=== PATIENT | male | born 1990 | race Caucasian/White ===

== ENCOUNTER 2019-09-09 01:18 | Emergency (ER) | payer OTHER, SELFPAY ==
[2013-06-30 07:42] VITALS: BMI 21.9
[2019-09-09 01:20] VITALS: BP 159/82; PULSE 66; RESP 18; TEMP 36.8; O2SAT 100; BMI 26.1
--- NOTE | 2019-09-09 01:30 | ED.VIS.GEN ---
History of Present Illness Chief Complaint: Syncope Detail of Chief Complaint: Syncope with urination Informant: Patient, Significant Other Onset: Today, Yesterday Context: Sudden Onset Timing: Intermittent Quality: Syncope and collapse with urination Location: Restroom Current Severity: - - Resolved Maximum Severity: Severe Worsened by: Urination Relieved by: Nothing specific Associated Symptoms: Pale, diaphoresis, collapse, eyes rolled back Narrative: She is a 29-year-old male with no sniffing past medical history who had a left inguinal hernia repair by Dr. Corina Stearns on September 07. He had to sit episodes yesterday while he attempted to urinate. Prior to arrival he had a sickle cell when he was trying to urinate. He became pale, diaphoretic and states vision began to tunnel and went black. He collapsed. Mother states his eyes rolled back. There was no incontinence of urine or stool. Denies headache. Denies biting his tongue. He denies blood in his urine. He denies black or maroon stool. He denies chest pain, shortness of breath or difficulty breathing. Prior similar symptoms: No Recent Illness/Hospitalization: Yes - Left inguinal hernia repair - Past Medical History (1) No significant past medical history Status: Acute Past Medical History - Allergies and Home Meds Allergies/Adverse Reactions: Allergies No Known Allergies Allergy (Verified 09/09/19 01:19) Primary Care Physician: Corina Stearns MD [STAFF PHYSICIAN] - Keep Anastacio appointment NOT,DEFINED [NON-STAFF] - Prior records reviewed: Yes Past Medical History: None Surgical History: - - Left inguinal hernia Lives: Spouse/ Significant Other Smoking Status: Never smoker Alcohol: None Drugs: None Review of Systems General: Denies: Chills, Fever, Malaise Eyes: Reports: Blurred Vision - bilaterally. Denies: Diplopia ENT: Denies: Bilateral ear pain, Rhinorrhea Cardiovascular: Denies: Chest pain, Palpitations, Heart racing Respiratory: Denies: Dyspnea, Cough, Dyspnea on exertion Gastrointestinal: Reports: Abdominal pain, Nausea. Denies: Vomiting, Diarrhea, Constipation, Melena, Hematochezia Genitourinary: Denies: Dysuria, Hematuria, Frequency Musculoskeletal: Denies: Myalgias, Arthralgias, Neck pain, Back pain, Swelling, Extremity Pain, -, - Skin: Denies: Rash, Wounds Neurological: Denies: Headache, Weakness, Numbness Allergy: Denies: Uticaria, Swelling of the mouth Physical Exam Vital Signs/Narrative: Vital Signs Temp Pulse Resp BP Pulse Ox 09/09/19 01:20 98.2 F 66 18 159/82 H 100 Inital Vital Signs reviewed: Yes General: Well nourished, Well developed, No Acute Distress Head: Normocephalic, Atraumatic Eyes: Perrl, EOMI. Negative for: Pale conjunctiva, Scleral icterus ENT: Moist mucous membranes, No rhinorrhea Neck: Supple, Nontender, No lymphadenopathy, No JVD Cardiovascular: Regular rate, Regular rhythm, No murmurs, Normal S1, Normal S2 Respiratory: No distress, CTA bilaterally, Chest nontender Abdomen: Soft, Nontender, Nondistended, Normal bowel sounds : - - Patient has dressing over left inguinal area. There is no erythema, warmth or fluctuance. There is no inguinal of adenopathy. Extremities: Nontender, No edema, - - There is no asymmetry, swelling, discoloration, leg vein distention, palpable cords or tenderness along the distribution of the deep venous system. Skin: No rash, No Trauma, Pallor. Negative for: Cyanosis, Diaphoresis, Jaundice Neurological: Alert, Oriented x3, Cranial nerves II-XII grossly intact, Normal Strength, Normal Sensation Psychological: Normal affect, Normal Mood Diagnostic/Tx/Re-eval - Rhythm Strip Rhythm Strip: Sinus Rhythm Rate: 62 Ectopy: None - Medical Decision Making Patient's history is consistent with micturition syncope. His cardia vascular and complete exam is normal. He was placed on a monitor to assess for dysrhythmia. He received the remainder of liter that was started by paramedics. ED Disposition - Plan for ED Patient: Disposition: Home or Assisted Living Diagnosis: Micturition syncope Instructions: SYNCOPE, Vasovagal Referrals: NOT,DEFINED [NON-STAFF] - Corina Stearns MD [STAFF PHYSICIAN] - Keep Anastcaio appointment
[2019-09-09] MEDS: 0.9% Normal Saline 1,000 ML 1000 ML IV (01:33)
[2019-09-09 03:21] VITALS: BP 123/64; PULSE 75; RESP 14; O2SAT 99
== END 2019-09-09 03:23 | disposition home or self-care (01) ==
PROVIDERS: Emergency Provider Emergency Medicine
DX: R55 Syncope and collapse (principal)
CPT/HCPCS: 96360; 96361; 99285; J7030

== ENCOUNTER 2023-06-16 14:12 | Emergency (ER) | payer OTHER, SELFPAY ==
[2023-06-16 14:13] VITALS: BP 132/86; PULSE 94; RESP 18; TEMP 36.8; O2SAT 98; BMI 24.9
--- NOTE | 2023-06-16 14:17 | EKG12_ITS ---
Test Reason : CP Blood Pressure : / mmHG Vent. Rate : 094 BPM Atrial Rate : 094 BPM P-R Int : 110 ms QRS Dur : 078 ms QT Int : 330 ms P-R-T Axes : 047 084 081 degrees QTc Int : 412 ms Sinus rhythm with sinus arrhythmia with short IN Otherwise normal ECG Confirmed by ANT SERVIN, BAILEY ([id number]), editor managing newspaper GAVINO SHERWOOD ([id number]) on 06/25/2023 10:06:00 AM Referred By: JOSÉ/YAYA/KRISTA Confirmed By:BAILEY CAIN MD
--- NOTE | 2023-06-16 14:32 | RAD_ITS ---
STUDY: X-RAY CHEST REASON FOR EXAM: Male, 33 years old. Chest pain TECHNIQUE: Single AP portable view of the chest. COMPARISON: Comparison is made with prior study June 30, 2013. FINDINGS: The lungs are clear and expanded. Scattered calcified granulomas. There is no demonstrated pleural abnormality. Normal size heart. Normal mediastinum and magdaleno. Normal visualized pulmonary arteries. Normal visualized aortic arch and descending thoracic aorta. Normal visualized thoracic spine. Normal visualized ribs, clavicles, and shoulders. There is no demonstrated abnormality of the visualized soft tissue structures of the upper abdomen. RAD/Chest 1 View (Portable) IMPRESSION: Normal x-ray examination of the chest. Electronically Signed: Gonzalo Wang MD at 15:01 EST ,
--- NOTE | 2023-06-16 14:39 | ED.VIS.CHEST ---
HPI History of Present Illness Chief Complaint: Chest Pain Narrative Narrative: 33-year-old male who denies significant past medical history presents with his because of midsternal, nonradiating chest pain that is intermittent that he has had since yesterday morning. There is no predictability to his sometimes sharp and stabbing, otherwise pressure sensation in his chest. He denies any nausea or vomiting, no shortness of breath, no diaphoresis. No DVT or PE risk factors. No risk factors for coronary artery disease. He denies any leg swelling. He presents because of the persistent pain and pressure that he is having midsternally. His does relate history that he eats a lot of hot, spicy foods and does lay down afterwards. [facility] Medical History (Updated 06/16/23 @ 17:59 by Yomi Presley MD) Syncopal episodes Medical History no medical history no medical history Home Medications No Known/Unobtainable [No Known Home Medications] 06/30/13 [History Last Taken Unknown] Allergy/AdvReac Type Severity Reaction Status Date / Time No Known Allergies Allergy Verified 06/16/23 14:13 Social History Smoking Status: Never smoker ROS ROS ED ROS Narrative Constitutional: No fever, no chills. HEENT: No sore throat. No neck pain. No loss of vision. No rhinorrhea. Cardiovascular: Midsternal chest pain with occasional pressure. No palpitations. No pedal edema. Respiratory: No cough, no shortness of breath. Abdominal: No abdominal pain. No nausea. No vomiting. Genitourinary: No dysuria. No hematuria. Musculoskeletal: No myalgias. No arthralgias. Neurologic: No headaches. No dizziness. No lightheadedness. Skin: No rash. No change in color. Psychiatric: No depression. No anxiety. EXAM Physical Exam Narrative Exam Narrative: Afebrile. Vital signs noted. HEENT: Normocephalic. Atraumatic. PERRL, EOMI. Neck soft and supple. No point tenderness or step off. Cardiovascular: Regular rate and rhythm. No murmurs, rubs, or gallops appreciated. Respiratory: No tachypnea. Lungs clear to auscultation bilaterally. Gastrointestinal: Abdomen soft, nontender, with normoactive bowel sounds. No rebound or guarding. Neurological: Awake. Alert. Nonfocal, nonlateralizing. Skin: No rash. Normal color. No pallor. Musculoskeletal: No pedal edema. Full range of motion extremities. Const Vital Signs: 06/16/23 14:13 06/16/23 14:59 06/16/23 15:00 Temperature 98.3 F Temperature Source Temporal Pulse Rate 94 90 Respiratory Rate 18 20 H Respiratory Effort Normal Non-Labored Blood Pressure 132/86 H 120/61 Blood Pressure Mean 101 80 Pulse Ox 98 98 Oxygen Delivery Method Room Air Room Air 06/16/23 17:23 06/16/23 18:07 06/16/23 18:08 Temperature Temperature Source Pulse Rate 74 82 81 Respiratory Rate 13 13 18 Respiratory Effort Blood Pressure 128/73 H 117/61 117/61 Blood Pressure Mean 91 79 79 Pulse Ox 98 97 96 Oxygen Delivery Method Room Air Room Air Heart Score History: Slightly/Non-Suspicious ECG: Normal Age: </= 45 years Risk Factors: No Risk Factors Score: 0 MDM MDM MDM Narrative Medical decision making narrative: In the differential diagnosis is coronary artery disease, pulmonary embolism, pneumothorax, and GERD. I have lower suspicion for pancreatitis as the history and physical does not support this. Additionally, he has a low Wells score for pulmonary embolism and his pulse ox is 98% on room air. Also in the differential diagnosis is hiatal hernia. EKG was obtained and interpreted by myself independently as normal sinus rhythm at 94 bpm with a sinus arrhythmia but no acute ST changes. No STEMI. I do feel that ischemia/STEMI has been ruled out. However, I do feel that D-dimer and troponins, serial, are indicated. Chest x-ray will also be obtained. Chest x-ray in 1 view interpreted by myself independently shows no evidence of pneumothorax or pneumonia. I do not feel antibiotics are indicated. I reviewed the radiology report which confirms my independent interpretation. It was reported that the patient had a vasovagal episode when starting his IV. He then refused his GI cocktail. I reviewed his laboratory work and he has slightly elevated white count 11.2 which I think is nonspecific, hemoglobin normal at 15.4, hematocrit normal at 44.9, platelet count normal at 225. D-dimer is less than 0.27. This combined with low suspicion/low Wells criteria for pulmonary embolism, I do feel that he has essentially been ruled out. Sodium was reviewed and is normal at 138 with potassium normal at 3.8, chloride 104, BUN normal at 14 with creatinine also normal at 1.05. Lipase is normal at 22. I have low suspicion for pancreatitis. His initial high-sensitivity troponin is 8 with 2-hour being 6. I feel he has been ruled out with biomarkers which are negative troponins. With the thought that this could be GERD, he will take [id number] medications and follow-up with his primary care provider. I feel he can be discharged safely home with follow-up and that he does not require observation at this time. He may need referral to gastroenterology as well. Return instructions were reviewed. Patient and are agreeable to the plan. Disposition is discharged home in stable condition. History & Record Review Discussion w/independent historian: Patient and Family Lab Data Attestation: I reviewed the patient's lab results. Labs: Laboratory Results - last 24 hr 06/16/23 06/16/23 14:50 16:53 WBC 11.2 H RBC 5.04 Hgb 15.4 Hct 44.9 MCV 89.1 MCH 30.6 MCHC 34.3 RDW Std Deviation 36.8 RDW Coeff of Gonsalo 11.3 L Plt Count 225 MPV 10.0 Immature Gran % (Auto) 0.700 Neut % (Auto) 75.2 H Lymph % (Auto) 13.7 L Burnett % (Auto) 9.2 Eos % (Auto) 0.6 Baso % (Auto) 0.6 Absolute Neuts (auto) 8.4 H Absolute Lymphs (auto) 1.54 Nucleated RBC % 0 D-Dimer Quant (PE/DVT) < 0.27 L Sodium 138 Potassium 3.8 Chloride 104 Carbon Dioxide 30.0 Anion Gap 4 L BUN 14 Creatinine 1.05 Estim Creat Clear Calc 99.13 Est GFR (MDRD) Af Amer 104 Est GFR (MDRD) Non-Af 86 BUN/Creatinine Ratio 13.3 Glucose 86 Calcium 9.4 Troponin I High Sens 8 6 Lipase 22 Radiography Diagnostic Testing: Clinical Impression(s) from Imaging Studies Chest X-Ray 06/16/23 14:32 IMPRESSION: Normal x-ray examination of the chest. Electronically Signed: Gonzalo Wang MD at 15:01 EST , Discharge Plan Triage Chief Complaint: Chest Pain ED Provider: Yomi Presley Dx/Rx/DC Orders Clinical Impression: Chest pressure, Chest pain Instructions: ED Chest Pain, Uncertain Cause Prescriptions: No Action No Known Home Medications Primary Care Provider: Jak Montenegro NP Referrals: Daniel Jo MD [Non-Staff] - 3-5 Days if not improving Jak Montenegro [employer], [employer] [Primary Care Provider] - 3-5 Days if not improving Activity Restrictions/Additional Instructions: Start [id number] Pepcid or Prilosec as needed and take for up to 2 weeks as directed. Follow-up with your primary care provider in 3 to 5 days. Return with new or worsening symptoms. Disposition Disposition: Home, Self Care
[2023-06-16 15:00] VITALS: BP 120/61; PULSE 90; RESP 20; O2SAT 98
--- NOTE | 2023-06-16 15:00 | ED.RN ---
after IV start- pt had syncopal episode while in bed, monitor reading asystole approx 15 seconds. pt pale and diaphoretic. vital signs taken. sinus rhythm. 1 L NS started. at bedside. does not want any medications (GI cocktail) d/t similar response.
[2023-06-16 15:05] LABS: Absolute Lymphocyte Count 1.54 X10^3/uL (0.83-4.51); Absolute Neutrophil Count 8.4 X10^3/uL (2.0-7.7); Basophil# 0.07 X10^3/uL; Basophil% 0.6 % (0-1); Eosinophil# 0.07 X10^3/uL; Eosinophils% 0.6 % (0-5); Hematocrit 44.9 % (40-54); Hemoglobin 15.4 g/dL (13.0-16.5); Lymphocyte # 1.54 X10^3/ul (0.83-4.51); Lymphocyte % 13.7 % (19-41); Mean Corp Hgb Conc 34.3 g/dL (32-36); Mean Corpuscular Hgb 30.6 pg (27.0-32.0); Mean Corpuscular Volume 89.1 fL (80-94); Monocyte# 1.03 X10^3/uL; Monocyte% 9.2 % (0-10); NRBC Flagged by Analyzer 0 % (0-5); Neutrophil # 8.42 X10^3/uL (2.7-7.7); Neutrophil % 75.2 % (47-70); Platelet Count 225 K/mm3 (150-450); RBC Distribution Width CV 11.3 % (11.6-14.6); RBC Distribution Width SD 36.8 fl (35.1-43.9); Red Blood Count 5.04 M/mm3 (4.6-6.2); White Blood Count 11.2 K/mm3 (4.4-11.0)
[2023-06-16 15:24] LABS: D-Dimer Quantitative (DVT/PE) < 0.27 FEU/ug/m (0.27-0.49)
[2023-06-16 15:25] LABS: Anion Gap 4 (5-15); BUN 14 mg/dL (7-18); BUN/Creat Ratio 13.3 RATIO (10-20); Calcium,Total 9.4 mg/dL (8.5-10.1); Chloride 104 mmol/L (98-107); Creatinine, Serum 1.05 mg/dL (0.70-1.30); EST Glomerular Filtration Rate 86 mL/min (>60); Est Glom Filt Rate - Afr Amer 104 mL/min (>60); Estimated Creatinine Clearance 99.13 ml/min; Glucose 86 mg/dL (74-106); Lipase 22 U/L (13-75); Potassium 3.8 mmol/L (3.5-5.1); Sodium Level 138 mmol/L (136-145); Troponin-I HS (w/2H Reflex) 8 pg/mL (3.0-78.0)
[2023-06-16 17:01] LABS: Reflex Troponin-HS? (from REC) Y
[2023-06-16 17:23] VITALS: BP 128/73; PULSE 74; RESP 13; O2SAT 98
[2023-06-16 17:33] LABS: Troponin-I HS 6 pg/mL (3.0-78.0)
[2023-06-16 18:07] VITALS: BP 117/61; PULSE 82; RESP 13; O2SAT 97
[2023-06-16 18:08] VITALS: BP 117/61; PULSE 81; RESP 18; O2SAT 96
== END 2023-06-16 18:15 | disposition home or self-care (01) ==
PROVIDERS: Emergency Provider Emergency Medicine; PCP Nurse Practitioner Family; Visit Provider Emergency Medicine
DX: R07.89 Other chest pain (principal)
CPT/HCPCS: 71045; 80048; 83690; 84484; 85025; 85379; 93005; 99283; J7030; A4216

== ENCOUNTER 2023-11-04 07:05 | Emergency (ER) | payer SELFPAY ==
[2023-11-04 07:06] VITALS: BP 123/91; PULSE 96; RESP 14; TEMP 36.6; O2SAT 100
--- NOTE | 2023-11-04 07:15 | CT_ITS ---
STUDY: CT ABDOMEN AND PELVIS WITHOUT CONTRAST REASON FOR EXAM: Male, 33 years old. Kidney Stone -- Pain is on the left. Left flank pain with nausea. Dark urine. RADIATION DOSAGE (If Supplied By Facility): CTDIvol = ( 6.31 ) mGy, DLP = ( 307.22 ) mGycm TECHNIQUE: Transaxial images were obtained from the dome of the diaphragm to the symphysis pubis without oral contrast, and without intravenous contrast. Sagittal and coronal images were reconstructed. Individualized dose optimization techniques were used for this CT. COMPARISON: None. FINDINGS: The visualized lung bases are unremarkable. The visualized portions of the heart are within normal limits. Normal liver. Normal gallbladder and extrahepatic biliary system. Normal spleen. Normal pancreas. Normal bilateral adrenal glands. Normal right kidney. Minimal fullness of the left renal collecting system and left ureter although no obstructive uropathy is seen at this time. Normal visualized stomach. Normal small intestine. Normal colon. The appendix is visualized and appears normal. Normal abdominal aorta. Normal inferior vena cava. Normal retroperitoneum. Normal urinary bladder. There is a small umbilical hernia containing fat. Normal osseous structures. CT/Abdomen/Pelvis without Cont IMPRESSION: Fullness of the left renal collecting system and left ureter although no obstructive uropathy is seen at this time. A recently passed calculus should be ruled out. Electronically Signed: Gonzalo Wang MD at 8:41 EDT ,
--- NOTE | 2023-11-04 07:15 | EX.ED.DYSGE1 ---
HPI History of Present Illness Chief Complaint: Flank Pain Detail of Chief Complaint: Abrupt onset of left flank pain radiating anteriorly towards the groin Informant: patient Onset/Context/Timing Onset: Hours Context: Sudden Onset Timing: Continuous and Waxes and wanes Quality: Colicky Location: Left flank radiating anteriorly Current Severity: Severe Maximum Severity: Severe Worsened by: Nothing Relieved by: Nothing Associated Symptoms Associated Symptoms: Nausea Narrative Narrative: Patient is a 33-year-old male with no past medical history on no medication and no allergies who presents with abrupt onset left flank pain radiating anteriorly towards the groin. He denies dysuria, frequency, urgency or hematuria. He denies experiencing this type of pain in the past. He has no history of renal ureterolithiasis. He denies fever, chills night sweats. Does endorse nausea without vomiting. There is no history of trauma. He has not noted a skin lesion. Prior similar symptoms: No Recent Illness/Hospitalization: No PFSH PFSH Medical History (Updated 11/04/23 @ 08:[address] Omkar Temple MD) Syncopal episodes Medical History no medical history no medical history Home Medications No Known/Unobtainable [No Known Home Medications] 06/30/13 [History Last Taken Unknown] Allergy/AdvReac Type Severity Reaction Status Date / Time No Known Allergies Allergy Verified 11/04/23 07:06 Surgical History no surgical history no surgical history Social History (Updated 11/04/23 @ 07:[address] Omkar Temple MD) Smoking Status: Never smoker alcohol intake: never substance use type: does not use ROS ROS ED Constitutional Constitutional ED: Denies chills, fever(s), subjective or sweats Cardiovascular Cardiovascular: Denies chest pain or palpitations Respiratory/Chest Respiratory/Chest: Denies cough, dyspnea or dyspnea on exertion Gastrointestinal Gastrointestinal: Reports abdominal pain and nausea; Denies constipation, diarrhea, melena or vomiting Genitourinary Genitourinary ED: Denies dysuria, hematuria or urinary frequency Musculoskeletal Musculoskeletal: Reports other Details: Left flank pain ; Denies arthralgias, back pain, myalgias or neck pain Integumentary Denies rash Neurologic Neurologic: Denies paresthesias or weakness Hematologic/Lymphatic Hematologic/Lymphatic: Reports systems reviewed and no addt'l complaints, except as documented EXAM Physical Exam Const Vital Signs: 11/04/23 07:06 Temperature 97.9 F Temperature Source Temporal Pulse Rate 96 Respiratory Rate 14 Blood Pressure 123/91 H Blood Pressure Mean 101 Pulse Ox 100 Oxygen Delivery Method Room Air Positive well nourished and well developed Constitutional Narrative: Patient is in obvious discomfort pacing. General Appearance ED: well developed and pallor; Negative for cyanotic or diaphoretic HEENT Reports moist mucous membranes HEENT Narrative: Head is atraumatic normocephalic. Ears normal. Nares patent. Eyes PERRL and EOMs intact bilaterally General Eye ED: Negative for pale conjunctiva or scleral icterus Neck no lymphadenopathy and supple Resp normal respiratory effort and clear to auscultation bilaterally Cardio regular rate, regular rhythm, S1 normal heart sound, S2 normal heart sound and no murmurs GI normal to inspection, nondistended, normoactive bowel sounds, non-tender, non-distended and no masses; Negative for hepatosplenomegaly Back/Spine no CVA tenderness Thoracic Spine / Upper Back: Negative for thoracic spinal tenderness Lumbar Spine / Lower Back: Negative for lumbar spinal tenderness Extremity normal to inspection General Extremety ED: Negative for edema General Extremity: Negative for edema Neuro oriented x3 and CN's II-XII intact bilaterally Sensorium / Orientation: alert Psych mental status grossly normal Skin no rashes or lesions noted, no wounds and skin turgor normal General Skin Exam: elasticity normal and pallor; Negative for jaundice MDM MDM MDM Narrative Medical decision making narrative: With abrupt onset of left flank pain differential diagnosis would include obstructing ureteral ureteral lithiasis, splenic rupture, kidney pathology, atypical presentation for testicular torsion History & Record Review Additional record(s) reviewed:: Prior inpatient record (There are none), Prior ED visit (Micturition syncope in 2019 and chest pain fall 2022) and Prior labs Lab Data Lab results narrative: Basic metabolic panel was elevated glucose of 129. Macro UA is positive for occult blood. Micro is pending. ([id number]) Labs: Laboratory Results - last 24 hr 11/04/23 11/04/23 07:37 07:49 Sodium 139 Potassium 4.2 Chloride 107 Carbon Dioxide 25.0 Anion Gap 7 BUN 17 Creatinine 1.25 Estim Creat Clear Calc 80.56 Est GFR (MDRD) Af Amer 85 Est GFR (MDRD) Non-Af 70 BUN/Creatinine Ratio 13.6 Glucose 129 H Calcium 9.2 Urine Color Yellow Urine Clarity Sl. Cloudy Urine pH 6.5 Ur Specific [place] 1.015 Urine Protein 30 H Urine Glucose (UA) Normal Urine Ketones 5 H Urine Occult Blood 10 H Urine Nitrite Negative Urine Bilirubin Negative Urine Urobilinogen 4 H Ur Leukocyte Esterase 25 H Urine RBC 0-5 SEEN Urine WBC 0-5 SEEN Ur Squamous Epith Cells 0 SEEN Urine Bacteria 0 SEEN Urine Mucus 0 SEEN Radiography Diagnostic Testing: Clinical Impression(s) from Imaging Studies Abdomen/Pelvis CT 11/04/23 07:15 IMPRESSION: Fullness of the left renal collecting system and left ureter although no obstructive uropathy is seen at this time. A recently passed calculus should be ruled out. Electronically Signed: Gonzalo Wang MD at 8:41 EDT , The radiology report was read. I believe there is a small stone in the bladder. Patient presently is pain-free. Treatment and Re-Evaluation :: IV was established. He was treated with 15 mg of Toradol for his pain and 4 mg of Zofran for his nausea. Opiate Gesic was not administered since he drove himself and would like to attend scheduled for 10 AM. Discharge Plan Triage Chief Complaint: Flank Pain ED Provider: Omkar Temple Dx/Rx/DC Orders Clinical Impression: Calculus, ureteral, Hydroureter on left Instructions: ED Kidney Stone, Passed Prescriptions: No Action No Known Home Medications Primary Care Provider: Jak Montenegro NP Referrals: Jak Montenegro NP, [employer] [Primary Care Provider] - As Needed Disposition Disposition: Home, Self Care
[2023-11-04] MEDS: 0.9% Normal Saline (1000mL) 1,000 ML 250 ML IV (07:43)
[2023-11-04] MEDS: Ondansetron 4 MG/2 ML Vial IV (07:43)
[2023-11-04] MEDS: Ketorolac 15 MG/ML Vial IV (07:43)
[2023-11-04 07:47] VITALS: BMI 26.2
[2023-11-04 07:58] LABS: Bacteria 0 SEEN /hpf (None Seen); Mucous, Urine 0 SEEN /hpf (<or=2+); Squamous Epithelial Cells - UA 0 SEEN /hpf (0-5)
[2023-11-04 08:01] LABS: Anion Gap 7 (5-15); BUN 17 mg/dL (7-18); BUN/Creat Ratio 13.6 RATIO (10-20); Calcium,Total 9.2 mg/dL (8.5-10.1); Chloride 107 mmol/L (98-107); Creatinine, Serum 1.25 mg/dL (0.70-1.30); EST Glomerular Filtration Rate 70 mL/min (>60); Est Glom Filt Rate - Afr Amer 85 mL/min (>60); Estimated Creatinine Clearance 80.56 ml/min; Glucose 129 mg/dL (74-106); Potassium 4.2 mmol/L (3.5-5.1); Sodium Level 139 mmol/L (136-145)
[2023-11-04 08:08] LABS: Color, Urine Yellow (Yellow); Glucose, Dipstick Normal (Normal); Ketone-Dipstick 5 mg/dl (Negative); Leukocyte Esterase-Dipstick 25 /ul (Negative); Nitrite-Dipstick Negative (Negative); Occult Blood-Urine 10 /ul (Negative); Protein-Dipstick 30 mg/dl (Negative); Specific Gravity, Urine 1.015 (1.002-1.030); Urine Bilirubin Dipstick Negative (Negative); Urine Clarity Sl. Cloudy (Clear); Urine Urobilinogen 4 mg/dl (Normal); Urine pH 6.5 (5.0 - 8.0)
[2023-11-04 08:20] LABS: Red Blood Cells-Urine 0-5 SEEN /hpf (0-5); White Blood Cells 0-5 SEEN /hpf (0-5)
[2023-11-04 09:12] VITALS: BP 124/69; PULSE 72; RESP 15; TEMP 36.7; O2SAT 98
[2023-11-04 09:14] VITALS: BP 121/62; PULSE 71; RESP 16; TEMP 36.7; O2SAT 100
== END 2023-11-04 09:15 | disposition home or self-care (01) ==
PROVIDERS: Emergency Provider Emergency Medicine; PCP Nurse Practitioner Family; Visit Provider Emergency Medicine
DX: N20.1 Calculus of ureter (principal); N13.4 Hydroureter
CPT/HCPCS: 74176; 80048; 81001; 96374; 96375; 99283; J7030; A4216; J2405

== ENCOUNTER → 2024-03-22 | Outpatient (CLI) | payer SELFPAY ==
--- NOTE | 2024-03-22 09:29 | RAD_ITS ---
STUDY: X-RAY CHEST REASON FOR EXAM: Male, 34 years old. Cough TECHNIQUE: PA and lateral views of the chest. COMPARISON: Comparison is made with prior study dated June 16, 2023. FINDINGS: Hyperinflation. The lungs are clear. There is no demonstrated pleural abnormality. Normal size heart. Normal mediastinum and magdaleno. Normal visualized pulmonary arteries. Normal visualized aortic arch and descending thoracic aorta. Normal visualized thoracic spine. Normal visualized ribs, clavicles, and shoulders. There is no demonstrated abnormality of the visualized soft tissue structures of the upper abdomen. RAD/Chest PA and Lateral IMPRESSION: Normal x-ray examination of the chest. Electronically Signed: Gonzalo Wang MD at 10:07 EDT ,
== END | disposition home or self-care (01) ==
PROVIDERS: PCP Nurse Practitioner Family; Referring Provider Physician Assistant; Visit Provider Physician Assistant
DX: R05.9 Cough, unspecified (principal)
CPT/HCPCS: 71046